=== PATIENT | female | born 1970 | race Caucasian/White ===

== ENCOUNTER → 2017-09-24 | Outpatient (CLI) | payer BC ==
[~2017-09-24] MED LIST: LIDOCAINE 1% Multi-Dose 50 ML VIAL. INJ
== END | disposition home or self-care (01) ==
LOC: US 13:17
DX: D24.1 Benign neoplasm of right breast (principal); Z88.0 Allergy status to penicillin; Z91.018 Allergy to other foods
CPT/HCPCS: 19081; 19083; 76942; 77065; 88305; C1713

== ENCOUNTER → 2020-08-25 | Outpatient (CLI) | payer BC ==
--- NOTE | 2020-08-25 13:33 | KCIC ---
Bilateral digital screening mammograms: Reason for examination: Routine screening. Comparison is made to previous studies dated 09/24/2017 and 09/02/2017. Interpretation was made with the benefit of CAD. The skin and nipples show no abnormalities. No abnormal axillary lymph nodes are seen. Bilateral maxi st implants remain present and appear to be intact The breast parenchyma is extremely dense. (Breast density: Category D.) There continues to be a nodule in the 3:00 position of the right breast which n ow contains a biopsy clip. There are no new dominant masses, suspicious calcifications or architectur al distortion. A few benign-appearing calcifications are seen in the right breast. Impression: Right breast nodule at the 3:00 position now containing a biopsy clip. No evidence of malignancy. Rec ommend routine screening. Your patient's mammogram demonstrates that she has dense breast tissue (breast density category C or D), which could hide abnormalities, and if she has other risk factors for breast cancer that have bee n identified, she might benefit from supplemental screening tests that may be suggested by you as her ordering physician. Dense breast tissue, in and of itself, is a relatively common condition. Therefo re, this information is not provided to cause undue concern, but rather to raise your awareness and t o promote discussion with your patient regarding the presence of other risk factors, in addition to d ense breast tissue. Your patient's mammography results will be sent to her. BI-RAD Category 2: Benign. "Our facility is accredited by the [employer] Mammography Program." This patient's information has been entered into a reminder system for the patient to be notified wit h the results of her examination and a target date for the next mammogram. Electronically signed by: Tonya Kaur MD (08/25/2020 1:31 PM) [facility]
== END ==
LOC: KCIC MAMMO 08:01
PROVIDERS: ATTEND Family Medicine
DX: Z12.31 Encounter for screening mammogram for malignant neoplasm of breast (principal); N64.89 Other specified disorders of breast
CPT/HCPCS: 77067